=== PATIENT | male | born 1985 | race Two or more races ===

== ENCOUNTER 2023-09-14 19:11 | Emergency (ER) | payer SELFPAY ==
[2023-09-14 19:30] VITALS: RESP 18; TEMP 98.4; BMI 44.3
[2023-09-14 20:44] LABS: EOS % 3.5 % (0-4.5); HEMATOCRIT 38.6 % (35.4-49); LYMPH % 28.8 % (8-40); MCH 28.2 pg (25.7-33.7); MCHC 33.6 g/dl (32.0-35.9); MONO % 4.9 % (3.8-10.2); NEUT % 61.8 % (42.8-82.8); PLATELET COUNT 249 10^3/uL (134-434); RDW 13.1 % (11.9-15.9); WHITE BLOOD COUNT 8.8 K/mm3 (4.0-10.0)
[2023-09-14 21:02] LABS: POTASSIUM 4.3 mmol/L (3.5-5.1)
[2023-09-14 21:04] LABS: ALBUMIN 3.8 g/dl (3.4-5.0); BLOOD UREA NITROGEN 15.6 mg/dL (7-18); CALCIUM 8.9 mg/dL (8.5-10.1)
[2023-09-14 21:07] LABS: CREATININE 1.1 mg/dL (0.55-1.3)
[2023-09-14 21:09] LABS: BILIRUBIN,TOTAL 0.3 mg/dL (0.2-1); TOT PROT 7.5 g/dl (6.4-8.2)
[2023-09-14] MEDS ORDERED: KETOROLAC TROMETHAMINE 30 MG/1 ML VIAL ONE (21:26)
[2023-09-14] MEDS: KETOROLAC TROMETHAMINE 30 MG/1 ML VIAL IVPUSH ONE (21:29)
[2023-09-14] MEDS: SODIUM CHLORIDE 0.9% 500 ML INFUS.BAG IV ONE (21:29)
[2023-09-14] MEDS ORDERED: AMOX TR/POT CLAV 875MG/125MG TABLETS (FP) ONE (22:06)
[2023-09-14] MEDS ORDERED: DALBAVANCIN HCL 500 MG VIAL (RESTRICTED TO ID ONLY) IVPB ONE (22:07)
[2023-09-14] MEDS: DALBAVANCIN HCL 1,500 MG in DEXTROSE 5%-WATER - 500 ML IVPB ONE (22:26)
[2023-09-14] MEDS: AMOX TR/POT CLAV 875MG/125MG TABLETS (FP) PO ONE (22:26)
[2023-09-14 23:31] VITALS: BP 109/69; PULSE 69
== END 2023-09-14 23:35 | disposition home or self-care (01) ==
LOC: JER 19:11
PROC: 3E03329 Introduction of Other Anti-infective into Peripheral Vein, Percutaneous Approach (ICD-10-PCS; principal; 2023-09-14)
PROC: 3E0333Z Introduction of Anti-inflammatory into Peripheral Vein, Percutaneous Approach (ICD-10-PCS; 2023-09-14)
DX: L03.116 Cellulitis of left lower limb (principal)
CPT/HCPCS: 36415; 73610-TC-LT-FY; 73630-TC-LT; 80053; 85025; 87040; 99284-25; J0875

== ENCOUNTER 2024-05-15 17:49 | Emergency (ER) | payer SELFPAY ==
[2024-05-15 18:15] VITALS: BP 136/62; PULSE 92; RESP 16; TEMP 97.7; BMI 46.5
== END 2024-05-15 19:20 | disposition home or self-care (01) ==
LOC: JERFT 17:49
DX: L03.012 Cellulitis of left finger (principal); M79.89 Other specified soft tissue disorders; M79.645 Pain in left finger(s)
CPT/HCPCS: 99283-25